=== PATIENT | female | born 1960 | race Caucasian/White ===

== ENCOUNTER 2024-01-29 16:16 | Emergency (ER) | payer OTHER ==
[~2024-01-29] VITALS: Ht 162.6 cm; Wt 118.2 kg
[2024-01-29] MEDS: HYDROcodone/acetaminophen 10/325mg tab PO ONE (17:50)
[2024-01-29] MEDS: ketorolac trometh inj. 60 MG/2 ML VIAL IM ONE ×2 (17:57→18:10)
[2024-01-29] MEDS: HYDROcodone/acetaminophen 5mg/325mg tablet PO ONE (18:10)
[2024-01-29] MEDS: dexamethasone sod phosphate 10mg/ml inj IM STA (18:31)
[2024-01-29] MEDS: cyclobenzaprine 10mg tablet PO ONE (18:31)
[2024-01-29] MEDS: LORazepam 2 mg/ml vial IV ONE (18:39)
[2024-01-29] MEDS ORDERED: CYCL-1 PO (21:42)
[2024-01-29] MEDS ORDERED: LIDO700A32 TOP (21:42)
[2024-01-29] MEDS ORDERED: PRED20TA PO (21:42)
[2024-01-29 22:08] VITALS: BP 143/83; PULSE 74; RESP 15; TEMP 98.4; O2SAT 93
== END 2024-01-29 22:11 | disposition home or self-care (01) ==
LOC: ER 16:17
DX: M51.26 Other intervertebral disc displacement, lumbar region (principal); R32 Unspecified urinary incontinence; E11.9 Type 2 diabetes mellitus without complications; Z91.040 Latex allergy status; Z88.8 Allergy status to other drugs, medicaments and biological substances
CPT/HCPCS: 72100; 72131; 72148; 96372; 96374; 99285; J1100; J1885; J2060

== ENCOUNTER 2025-06-11 19:24 | Emergency (ER) | payer MEDICARE, MEDICAID ==
[~2025-06-11] VITALS: Ht 162.6 cm; Wt 136.3 kg
[~2025-06-11 19:24] MED LIST: CYCL-1 PO; LIDO-52 TOP
[2025-06-11 19:34] VITALS: BP 128/89; PULSE 94; RESP 16; O2SAT 98
[2025-06-11 21:45] LABS: MEAN PLATELET VOLUME 7.9 FL (7.4-10.4); RED CELL DISTRIBUTION WIDTH 13.8 % (11.5-14.5)
[2025-06-11 22:01] LABS: CREATININE 0.89 MG/DL (0.40-0.90); TOTAL CARBON DIOXIDE 30.9 MMOL/L (24-32); eCRCL 55 ML/MIN; eGFR 64 ML/MIN
[2025-06-11] MEDS: LIDOcaine 1% 30ml preserv. free vial IJ STA (22:34)
[2025-06-11] MEDS: normal saline 500ml IV soln 500 ML IV ONE (22:47)
[2025-06-11] MEDS ORDERED: SULF1TAB45 PO (23:24)
[2025-06-11] MEDS ORDERED: DOXY150T3 PO (23:24)
--- NOTE | 2025-06-11 23:26 | Physician Documentation ---
History of Present Illness ~ Chief Complaint: Wound Stated Complaint: MRSA Time Seen by MD: 19:49 Primary Medical Doctor: NONE HPI 64-year-old female presents to the ER for evaluation of a right-sided inguinal abscess and areas of rash under underneath her bilateral axilla. Patient reports that she has a history of MRSA proximally 14 years ago. In his concerned about that today. He also reports that she is diabetic and has a history of yeast infections and yeast dermatitis patient reports not feeling great over the last couple of days reports that she has been exposed to sick family members in addition to not feeling well with the abscess patient reports has a abscess causes her significant pain isn't and is impeding ambulation at times. Tetanus within 5 years?: No Medication Reconciliation Allergies: Coded Allergies: iodine (Verified Allergy, Unknown, 06/11/25) lisinopril (Verified Allergy, Unknown, 06/11/25) metronidazole (Verified Allergy, Unknown, 06/11/25) Scheduled Cyclobenzaprine* (Cyclobenzaprine*), 1 TAB PO HS Doxycycline Monohydrate (Doxycycline), 1 TAB PO Q12H Lidocaine (Lidoderm), 1 PATCH TOP DAILY Nystatin (NYSTOP powder), 1 APPLIC TP BID Sulfamethoxazole/Trimethoprim (Septra Ds Tab), 1 TAB PO Q12H Past Medical History Past Medical History: Diabetes Past Surgical History: noncontributory Alcohol Use: None Drug Use: none Review of Systems All Other Systems at this time: Reviewed and Negative ROS As stated above in the HPI, otherwise all systems are reviewed and negative. Physical Exam Vital Signs: Temperature: 97.7, Source: Temporal, Heart Rate: 94, Respiratory Rate: 16, BP: 128/89, Pulse Oximetry: 98, Weight: 136.300 Oxygen Flow Rate: 0 Physical Exam VITALS: Reviewed and as above. GENERAL: Alert, no apparent distress. HEENT: Normocephalic, atraumatic, PERRL, EOMI, dry mucosa, no erythema RESPIRATORY: Lungs clear, normal breath sounds, no respiratory distress. CHEST: No accessory muscle use, no retractions CV: Regular rate, rhythm, no edema, no murmur, No: JVD GI: Soft, non-tender, bowels sounds present, no rebound, guarding, or rigidity BACK: No CVA tenderness, or swelling MUSCULOSKELETAL No deformities, no edema SKIN: Warm and dry, areas of yeast your bilateral axilla. Moderately sized abscess to the right groin inguinal fold causing significant pain. NEURO: Oriented x4, No motor or sensory deficit PSYCH: Normal mood and affect, no agitation General Appearance VITALS: Reviewed and as above. GENERAL: Alert, no apparent distress. HEENT: Normocephalic, atraumatic, PERRL, EOMI, dry mucosa, no erythema RESPIRATORY: Lungs clear, normal breath sounds, no respiratory distress. CHEST: No accessory muscle use, no retractions CV: Regular rate, rhythm, no edema, no murmur, No: JVD GI: Soft, non-tender, bowels sounds present, no rebound, guarding, or rigidity BACK: No CVA tenderness, or swelling MUSCULOSKELETAL No deformities, no edema SKIN: Warm and dry, have rash under bilateral axilla, size abscess to the right inguinal fold NEURO: Oriented x4, No motor or sensory deficit PSYCH: Normal mood and affect, no agitation Progress Results/Orders Results/Orders Orders - CIELO HUERTAP Novel Coronavirus [place] (06/11/25 21:12) Cult Fungus Other (06/11/25 21:25) Cult (Aer) Routine C&S+Gram St (06/11/25 21:25) Cult Anaerobic (06/11/25 21:25) Urinalysis, Cult If Indicated (06/11/25 22:14) Completed Orders - CIELO HUERTAP Culture Body Fluid Order (06/11/25 20:12) Cbc/Diff (06/11/25 21:12) CMP (06/11/25 21:12) LA (06/11/25 21:12) Acetaminophen 325mg Tablet (Tylenol Tabl (06/11/25 21:30) Normal Saline 500ml Iv Soln (Sodium Chlo (06/11/25 22:20) Lidocaine 1% 30ml Vial (Xylocaine 1% Via (06/11/25 22:24) Doxycycline 100mg Capsule (Vibramycin 10 (06/11/25 23:32) Sulfamethox/Trimetho. Ds Tab (Septra Ds (06/11/25 23:35) Vital Signs 06/11/25 06/11/25 19:34 23:28 Temp 97.7 97.7 Pulse 94 Resp 16 B/P (MAP) 128/89 Pulse Ox 98 O2 Flow Rate 0 Laboratory Tests Test 06/11/25 21:28 White Blood Count 17.7 H Red Blood Count 4.48 Hemoglobin 15.1 Hematocrit 43.7 Mean Corpuscular Volume 97.5 Mean Corpuscular Hemoglobin 33.7 H Mean Corpuscular Hemoglobin Concent 34.5 Red Cell Distribution Width 13.8 Platelet Count 249 Mean Platelet Volume 7.9 Neutrophils (%) (Auto) 57.7 Lymphocytes (%) (Auto) 29.5 Monocytes (%) (Auto) 9.6 Eosinophils (%) (Auto) 2.9 Basophils (%) (Auto) 0.3 Neutrophils # (Auto) 10.2 H Lymphocytes # (Auto) 5.2 H Monocytes # (Auto) 1.7 H Eosinophils # (Auto) 0.5 Basophils # (Auto) 0.0 CBC Comment Sodium Level 131 L Potassium Level 3.7 Chloride Level 96 L Carbon Dioxide Level 30.9 Anion Gap 4 L Blood Urea Nitrogen 11 Creatinine 0.89 Estimated GFR/1.73 m2 64 BUN/Creatinine Ratio 12.4 Glucose Level 169 H Lactic Acid Level 0.8 Calcium Level 8.9 Total Bilirubin 1.0 Aspartate Amino Transf (AST/SGOT) 34 Alanine Aminotransferase (ALT/SGPT) 51 Alkaline Phosphatase 102 Total Protein 8.1 Albumin 3.6 Globulin 4.5 H Albumin/Globulin Ratio 0.8 L Chemistry Comments Microbiology Date/Time Source Procedure Growth Status 06/11/25 21:45 Print Internal Inquiry - Final Complete 06/11/25 21:25 Groin Right Routine Culture - Preliminary Resulted 06/11/25 21:25 Groin Right Anaerobic Culture Pending Resulted Medical Decision Making Findings This patient presents with a painful fluid pocket with fluctuance and surrounding induration and erythema, concerning for an abscess of the right inguinal folds. The patient refused I&D. Consume regarding this is this decision were thoroughly discussed with the patient's patient's he remained adamant that she would like to forego an I and D at this time. Test antibiotic options for this patient. Unnecessary to deviate from the standard combination of antibiotics as his patient reports that she has previously had issues with Keflex although was unspecific about the issue. Tooth to prescribe the patient Bactrim and doxycycline times 10 days. Express extreme return precautions for this patient regarding not only increase in symptom presentation but without any improvement the patient needed to come back within two days. There is no lymphangitic spread visible. Low concern for osteomyelitis. Patient is not immunocompromised, and there is no bullae, pain out of proportion, or rapid progression concerning for necrotizing fasciitis. Patient to be discharged home with bactrim and keflex with follow up with their PMD. Differential Dx:Considerations: Include: Abscess Departure Disposition: 01 HOME / SELF CARE / HOMELESS Impression: Primary Impression: Abscess Additional Impression: Yeast dermatitis Condition: Stable Additional Instructions: See we evaluated you for a groin abscess to the right labial fold. And yeast in your bilateral axilla. Patient was provided on how to clean areas that are prone to yeast. Antibiotics were prescribing Bactrim and doxycycline as he reported that Keflex causes issues. He had discussed the need for I and D of the abscess. You declined that today we discussed taking the antibiotics for 2- 3 days if any worsening or lack of improvement of the abscess we will request a you please return to the emergency department. And/or follow up with your primary care provider. He had the elevated white blood cell count it with the preferable if you were to return to the emergency department for evaluation. Referrals: NO PRIMARY CARE PROVIDER (PCP) Prescriptions Nystatin (NYSTOP powder) 100,000 Unit/Gram Gra 1 APPLIC TP BID for 10 Days, GM Prov: CIELO HUERTA 06/11/25 Doxycycline Monohydrate (Doxycycline) 150 Mg Tablet 1 TAB PO Q12H for 10 Days, #20 TAB Prov: CIELO HUERTA 06/11/25 Sulfamethoxazole/Trimethoprim (Septra Ds Tab) 800 Mg/160 Mg Tablet 1 TAB PO Q12H for 10 Days, #20 TAB Prov: CIELO HUERTA 06/11/25 Education Educated: Patient Educated regarding: diagnosis, treatment, need for follow up Signature Scribe Signature: . Attestation: Scribed for Cielo Huerta by ALYCIA Altamirano . 06/12/25 17:58 CIELO HUERTA Jun 11, 2025 23:26
[2025-06-11 23:28] VITALS: TEMP 97.7
[2025-06-11] MEDS ORDERED: NYSPWD TP (23:39)
[2025-06-11] MEDS: sulfamethoxazole/trimethoprim DS (800/160mg) tablet PO ONE (23:45)
[2025-06-11] MEDS: DOXYCYCLINE 100MG CAPSULE PO STA (23:45)
== END 2025-06-11 23:46 | disposition home or self-care (01) ==
LOC: ER 19:25
DX: L02.214 Cutaneous abscess of groin (principal); B37.2 Candidiasis of skin and nail; E11.9 Type 2 diabetes mellitus without complications; Z88.1 Allergy status to other antibiotic agents; Z88.8 Allergy status to other drugs, medicaments and biological substances
CPT/HCPCS: 36415; 80053; 83605; 85025; 87070; 87075; 87102; 99284; A6258; A6266; A6402; J7040; Z7610; A6449